=== PATIENT | female | born 1985 | race African-American/Black ===

== ENCOUNTER 2019-10-04 21:07 | Emergency (ER) | payer MEDICAID ==
[~2019-10-04] VITALS: Ht 167.6 cm; Wt 72.0 kg
[2019-10-04] MEDS ORDERED: ALPRAZOLAM 0.5 MG TABLET PO ONE (21:30)
[2019-10-04 21:38] VITALS: BP 183/105
[2019-10-05] MEDS ORDERED: CLONIDINE 0.2MG TABLET PO ONE (00:15)
== END 2019-10-05 01:20 | disposition home or self-care (01) ==
LOC: ER 21:07
DX: I10 Essential (primary) hypertension (principal); F41.8 Other specified anxiety disorders; F43.21 Adjustment disorder with depressed mood; Z63.4 Disappearance and death of family member
CPT/HCPCS: 93005; 99283